=== PATIENT | female | born 1975 | race Caucasian/White ===

== ENCOUNTER 2023-03-05 07:52 | Outpatient (OUT) | payer BC, SELFPAY ==
[2023-03-05 08:12] LABS: Basophils Percent Auto 0.4 % (0.2-2.0); Eosinophils Absolute Auto 0.3 10^3/uL (0.0-0.7); Eosinophils Percent Auto 4.3 % (0.9-7.0); Hematocrit 42.9 % (36.0-48.0); Hemoglobin 14.5 g/dL (12.0-16.0); Immature Granulocytes Abs Auto 0.02 10^3/uL (0.00-0.03); Immature Granulocytes Pct Auto 0.3 % (0.0-0.5); Lymphocytes Absolute Auto 2.1 10^3/uL (1.2-3.8); Lymphocytes Percent Auto 29.5 % (20.5-60.0); Mean Corpuscular HGB Conc 33.8 g/dL (29.9-35.2); Mean Corpuscular Hemoglobin 29.9 pg (26.7-34.0); Mean Corpuscular Volume 88.5 fL (81.0-99.0); Mean Platelet Volume 9.5 fL (9.5-13.5); Monocytes Absolute Auto 0.5 10^3/uL (0.3-0.8); Monocytes Percent Auto 6.8 % (1.7-12.0); Neutrophils Absolute Auto 4.1 10^3/uL (1.4-6.5); Neutrophils Percent Auto 58.7 % (43.0-75.0); Platelet Count 260 10^3/uL (150-450); Red Blood Count 4.85 10^6/uL (4.20-5.40); Red Cell Distribution Width 12.9 % (11.0-15.0); White Blood Count 6.9 10^3/uL (4.0-11.0)
[2023-03-05 08:54] LABS: Estimated Average Glucose 197 mg/dL; Glycohemoglobin A1C 8.5 % (4.5-6.2)
[2023-03-05 09:02] LABS: Alanine Aminotransferase 70 U/L (14-59); Albumin Globulin Ratio 1.1; Albumin Level 3.9 g/dL (3.4-5.0); Alkaline Phosphatase 81 U/L (46-116); Anion Gap 14.9; Aspartate Amino Transferase 30 U/L (15-37); BUN Creatinine Ratio 15.6; Bilirubin Total 0.5 mg/dL (0.2-1.0); Calcium 9.4 mg/dL (8.5-10.1); Chloride 99 mmol/L (98-107); Chol HDL Ratio 4.6; Cholesterol 199 mg/dL (<=200); Estimated GFR (African America >60 (>=60); Estimated GFR (Non-African Ame >60 (>=60); Globulin 3.5 g/dL; Glucose 230 mg/dL (74-106); HDL Cholesterol 43 mg/dL (40-60); Potassium 3.9 mmol/L (3.5-5.1); Sodium 137 mmol/L (136-145); Total Protein 7.4 g/dL (6.4-8.2); Triglycerides 251 mg/dL (<=150); VLDL CHOLESTEROL 50.2 mg/dL
== END 2023-03-05 07:53 | disposition home or self-care (01) ==
PROVIDERS: PCP Family Medicine; Visit Provider Family Medicine
DX: Z00.00 Encounter for general adult medical examination without abnormal findings (principal)
CPT/HCPCS: 36415; 80053; 80061; 83036; 85025

== ENCOUNTER 2024-04-26 08:05 | Outpatient (OUT) | payer BC, SELFPAY ==
[2024-04-26 08:59] LABS: Estimated Average Glucose 137 mg/dL; Glycohemoglobin A1C 6.4 % (4.5-6.2)
[2024-04-26 09:03] LABS: Alanine Aminotransferase 47 U/L (14-59); Albumin Globulin Ratio 1.2; Albumin Level 3.7 g/dL (3.4-5.0); Alkaline Phosphatase 77 U/L (46-116); Aspartate Amino Transferase 22 U/L (15-37); BUN Creatinine Ratio 14.1; Bilirubin Total 0.5 mg/dL (0.2-1.0); Calcium 9.2 mg/dL (8.5-10.1); Carbon Dioxide 27.1 mmol/L (21.0-32.0); Chloride 103 mmol/L (98-107); Chol HDL Ratio 3.8; Cholesterol 170 mg/dL (<=200); Estimated GFR (African America >60 (>=60 mL/min/1.73m^2); Estimated GFR (Non-African Ame >60 (>=60 mL/min/1.73m^2); Globulin 3.2 g/dL; Glucose 170 mg/dL (74-106); HDL Cholesterol 45 mg/dL (40-60); Potassium 4.1 mmol/L (3.5-5.1); Sodium 142 mmol/L (136-145); Total Protein 6.9 g/dL (6.4-8.2); Triglycerides 224 mg/dL (<=150); VLDL CHOLESTEROL 44.8 mg/dL
[2024-04-26 09:04] LABS: Basophils Percent Auto 0.5 % (0.2-2.0); Eosinophils Absolute Auto 0.4 10^3/uL (0.0-0.7); Eosinophils Percent Auto 4.9 % (0.9-7.0); Hematocrit 42.9 % (36.0-48.0); Hemoglobin 14.5 g/dL (12.0-16.0); Immature Granulocytes Abs Auto 0.02 10^3/uL (0.00-0.03); Immature Granulocytes Pct Auto 0.3 % (0.0-0.5); Lymphocytes Absolute Auto 2.8 10^3/uL (1.2-3.8); Lymphocytes Percent Auto 36.5 % (20.5-60.0); Mean Corpuscular HGB Conc 33.8 g/dL (29.9-35.2); Mean Corpuscular Hemoglobin 29.8 pg (26.7-34.0); Mean Corpuscular Volume 88.1 fL (81.0-99.0); Mean Platelet Volume 9.7 fL (9.5-13.5); Monocytes Absolute Auto 0.6 10^3/uL (0.3-0.8); Monocytes Percent Auto 7.7 % (1.7-12.0); Neutrophils Absolute Auto 3.8 10^3/uL (1.4-6.5); Neutrophils Percent Auto 50.1 % (43.0-75.0); Platelet Count 291 10^3/uL (150-450); Red Blood Count 4.87 10^6/uL (4.20-5.40); Red Cell Distribution Width 13.1 % (11.0-15.0); White Blood Count 7.6 10^3/uL (4.0-11.0)
[2024-04-26 09:52] LABS: Microalbumin Urine Random <1.3 mg/dL (<=30.0)
== END 2024-04-26 08:06 | disposition home or self-care (01) ==
LOC: LAB 08:08
PROVIDERS: PCP Family Medicine; Visit Provider Family Medicine
DX: Z00.00 Encounter for general adult medical examination without abnormal findings (principal); E11.65 Type 2 diabetes mellitus with hyperglycemia
CPT/HCPCS: 36415; 80053; 80061; 82043; 83036; 85025

== ENCOUNTER 2024-11-24 07:12 | Outpatient (OUT) | payer BC, SELFPAY ==
--- OUTSIDE RECORDS SUMMARY | 2024-11-24 07:15 | XMS_ITS | CCD ---
Author Organization [facility] Care Team Providers Care Gas Worker Name Role Phone DR GERMAINE ALDANA Attending Unavailable HILDA, DR SYLVIA Nieto Primary Care Unavailable NEIL, DR HERRON Admitting Unavailable NEIL, DR HERRON Consulting Unavailable NEIL, DR HERRON Attending Unavailable HILDA, DR SYLVIA Nieto Primary Care Unavailable NEIL, DR HERRON Admitting Unavailable NEIL, DR HERRON Consulting Unavailable MD Sylvia Tavares Primary Care Provider [phone] MD Abdirahman Reynoso Attending Provider Sylvia Tavares Unavailable MD Sylvia Tavares Primary Care Provider [phone] MD Abdirahman Reynoso Attending Provider Sylvia Tavares MD Primary Care Provider [phone] BHARATI LIMON Attending Unavailable ABDIRAHMAN REYNOSO Attending Unavailable ABDIRAHMAN REYNOSO Referring Unavailable ABDIRAHMAN REYNOSO Attending Unavailable LESLYE ALEXANDER Attending Unavailable ABDIRAHMAN REYNOSO Attending Unavailable Sylvia Tavares MD Primary Care Provider Self, Referral Attending Provider Unavailable Abdirahman Reynoso MD Referring Provider Ly Kina ANGULO Attending Provider Kina Ruiz Attending Unavailable Sylvia Tavares Primary Care Unavailable Kina Ruiz Admitting Unavailable Self, Referral Admitting Unavailable Self, Referral Attending Unavailable Abdirahman Reynoso Referring Unavailable Sylvia Tavares Primary Care Unavailable Allergies Allergy Classification Reported Allergen(s) Allergy Type Date of Onset Reaction(s) Facility (10 sources) Latex; Translations: [Latex] Allergy to substance 03-17-20 [facility] (2 sources) Pseudoephedrine Drug Allergy 10-02-19 15 Unknown [email or web address] Other (2 sources) Substance with penicillin structure and antibacterial mechanism of action (substance) Drug allergy 10-02-19 15 Unknown [email or web address] Other (1 source) Penicillins Allergy to substance 04-26-20 [facility] Comment on above: Onset Date: 10/02/19 15 (1 source) 12 Hour Decongestant Allergy to substance 04-26-20 [facility] Comment on above: Onset Date: 10/02/19 15 Medications Current Medications Medication Drug Class(es) Dates Sig (Normalized) Sig (Original) 0.25 MG, 0.5 MG Dose 3 ML semaglutide 0.68 MG/ML Pen Injector [Ozempic] (1 source) inject 0.5 mg by subcutaneous injection every week Ozempic (0.25 or 0.5 MG/DOSE) 2 MG/3ML 0.5mg Subcutaneous weekly for 90 days Active Albuterol (2 sources) beta2-Adrenergic Agonist Start: 05-18-2022 take 2 puff(s) by inhalation four times daily Albuterol Sulfate 90mcg/actuat albuterol sulfate 90mcg/actuat, 2 puffs 4 times per day;shortness of breath or wheezing # 1, 05/18/2022, No Refill. Active inhalation 4 times per day;shortness of breath or wheezing for 0 *Pick strength-form from [employer] for eRX* 06 May, 2022 Active ascorbic acid 1000 mg oral tablet (4 sources) Vitamin C Start: 06-16-2017 take 1 tablet by mouth once daily Ascorbic Acid (Vitamin C) 1,000 mg Tablet Active 1 TAB PO Daily June 16, 2017 12:00am Aspir-81 (2 sources) Aspir-81 Active aspirin 81 mg chewable tablet (8 sources) Platelet Aggregation Inhibitor, Nonsteroidal Anti-inflammatory Drug Start: 06-16-2017 take 1 tablet by mouth once daily Aspirin (Aspirin Childrens) 81 mg Tablet,Chewable Active 1 TAB PO Daily June 16, 2017 12:00am ASPIRIN 81 PO 1 (one) time each day at the same time Active atenolol 50 mg oral tablet (10 sources) beta-Adrenergic Reid Start: 06-16-2017 take 1 tablet by mouth once daily Atenolol 50 mg Tablet Active 50 MG PO Daily June 16, 2017 12:00am atorvastatin 20 mg oral tablet (12 sources) HMG-CoA Reductase Inhibitor Start: 01-31-2024 Atorvastatin 20 mg tablet Active 0 .ROUTE .COMPLEX January 31, 2024 10:11am TAKE 1 TABLET DAILY Start: 06-16-2017 End: 01-31-2024 take 1 tablet by mouth once daily Atorvastatin 20 mg Tablet Discontinued 20 MG PO Daily June 16, 2017 12:00am January 31, 2024 10:11am calcium carbonate 1500 mg oral tablet (8 sources) Start: 06-16-2017 take 1 tablet by mouth twice daily Calcium Carbonate (Calcium 600) 600 mg calcium (1,500 mg) Tablet Active 1 TAB PO Twice daily June 16, 2017 12:00am calcium carbonat e (Calcium 600) 600 MG tablet Orally Active cetirizine hydrochloride 10 mg oral tablet (8 sources) Histamine-1 Receptor Antagonist Start: 06-16-2017 take 1 tablet by mouth once daily Cetirizine 10 mg Tablet Active 10 MG PO Daily June 16, 2017 12:00am cetirizine (ZyrT EC) 10 MG chewable tablet 1 (one) time each day at the same time Active cinnamon bark 500 mg oral capsule (4 sources) Start: 06-16-2017 take 1 capsule by mouth once daily Cinnamon Bark (Cinnamon) 500 mg Capsule Active 500 MG PO Daily June 16, 2017 12:00am Cinnamon Preparation (4 sources) Non-Standardized Food Allergenic Extract Cinnamon 500 MG tablet 1 (one) time each day at the same time Active hydroCHLOROthiazide 12.5 mg / lisinopril 10 mg oral tablet (12 sources) Thiazide Diuretic, Angiotensin Converting Enzyme Inhibitor Start: 04-03-2024 Lisinopril-Hydr ochlorothiazide 10-12.5 mg tablet Active 0 .ROUTE .COMPLEX April 03, 2024 9:05pm TAKE 1 TABLET DAILY Start: 06-16-2017 End: 04-03-2024 take 1 tablet by mouth once daily Lisinopril-Hydrochlorothiazide 10-12.5 m g Tablet Discontinued 1 TAB PO Daily June 16, 2017 12:00am April 03, 2024 9:05pm Prsrx-Nn-7-Shd-Uot-Tnjbtli-A st (Megared [place]-3 Krill Oil) 690-500-86-64 mg Capsule (4 sources) Start: 06-16-2017 Wyqlk-Jn-8-Lqm-Zjc-Bexjqyi-A st (Megared [place]-3 Krill Oil) 746-990-72-64 mg Capsule Active 1 TAB PO Daily June 16, 2017 12:00am metFORMIN (12 sources) Biguanide Start: 09-28-2023 Metformin 1,000 mg tablet Active 0 .ROUTE .COMPLEX 180 September 28, 2023 8:43pm TAKE 1 TABLET TWICE A DAY Start: 06-16-2017 End: 09-28-2023 take 1 tablet by mouth twice daily Metformin 1,000 mg Tablet Discontinued 1000 MG PO Twice daily June 16, 2017 12:00am September 28, 2023 8:44pm metFORMIN (Gluco phage) 1000 MG tablet every 12 (twelve) hours Active Boveyaia-Dbsm-Fj-Calcium-Min s (Women's One Daily) 18 mg iron-400 mcg-500 mg Ca Tablet (4 sources) Start: 06-16-2017 take 1 tablet by mouth once daily Rnvolhse-Esaq-Qm-Calcium-Mins (Women's One Daily) 18 mg iron-400 mcg-500 mg Ca Tablet Active 1 MG PO Daily June 16, 2017 12:00am OneTouch Verio (2 sources) Start: 01-05-2022 OneTouch Verio OneTouch Veri o , 1 (one) Each Each daily # 0, 01/05/2022, No Refill. Active In Vitro daily for 0 *Pick strength-form from [employer] for eRX* Dec, Active OneTouch Verio - (2 sources) OneTouch Verio - USE 1 STRIP DAILY Active ozempic (0.25 or 0.5 mg/dose ) 2 mg/3ml solution pen-injector (1 source) inject 0.5 mg by subcutaneous injection every week Ozempic (0.25 or 0.5 MG/DOSE) 2 MG/3ML 0.5mg Subcutaneous weekly for 90 days Active Ozempic, 0.25 or 0.5 MG/DOSE , 2 MG/3ML solution pen-injector (4 sources) Start: 03-08-2023 Ozempic, 0.25 or 0.5 MG/DOSE , 2 MG/3ML solution pen-injector 03/08/2023 Active potassium 99 mg extended release oral tablet (8 sources) Start: 06-16-2017 take 1 tablet by mouth once daily Potassium 99 mg Tablet Active 99 MG PO Daily June 16, 2017 12:00am Potassium 99 MG tablet 1 (one) time each day at the same time Active Semaglutide (4 sources) Start: 04-26-2024 Semaglutide (O zempic) 0.25 mg or 0.5 mg (2 mg/3 mL) pen injector Active 0.5 MG SUBCUT every week 3 April 26, 2024 1:43pm Start: 04-19-2024 End: 04-26-2024 Semaglutide (Ozempic) 0.25 m g or 0.5 mg (2 mg/3 mL) pen injector Discontinued 0.5 MG SUBCUT every week 3 April 19, 2024 12:00am April 26, 2024 1:43pm valACYclovir 1000 mg oral tablet (2 sources) Herpesvirus Nucleoside Analog DNA Polymerase Inhibitor, Herpes Simplex Virus Nucleoside Analog DNA Polymerase Inhibitor, Herpes Zoster Virus Nucleoside Analog DNA Polymerase Inhibitor Start: 03-20-2024 End: 03-27-2024 take 1 tablet by mouth in the morning, then take 1 tablet by mouth in the evening, then take 1 tablet by mouth at bedtime valACYclovir (Valtrex) 1 g tablet Indications: Herpes zoster without complication Take 1 tablet (1,000 mg) by mouth in the morning and 1 tablet (1,000 mg) in the evening and 1 tablet (1,000 mg) before bedtime. Do all this for 7 days. 21 tablet 03/20/2024 03/27/2024 Active Vitamin B Complex-Folic Acid (Super B Maxi Complex) 0.4 mg Tablet (4 sources) Start: 06-16-2017 take 1 tablet by mouth once daily Vitamin B Complex-Folic Acid (Super B Maxi Complex) 0.4 mg Tablet Active 1 TAB PO Daily June 16, 2017 12:00am Zinc (4 sources) Start: 06-16-2017 take 1 tablet by mouth once daily Zinc 50 mg Tablet Active 50 MG PO Daily June 16, 2017 12:00am Start: 06-16-2017 take 50 mg by mouth once daily Zinc Active 50 MG PO Daily June 16, 2017 12:00am zinc gluconate 50 mg oral ta blet (4 sources) zinc gluconate 5 0 MG tablet 1 (one) time each day at the same time Active Completed/Discontinued Medications Medication Drug Class(es) Dates Sig (Normalized) Sig (Original) acetaminophen 325 mg / HYDROcodone bitartrate 5 mg oral tablet (4 sources) Opioid Agonist Start: 07-01-2017 End: 07-08-2017 take 1 tablet by mouth four times daily as needed for pain Hydrocodone-Acetam inophen (Lapine) 5-325 mg tablet Discontinued 1 TAB PO Four times daily as needed for pain 28 7 July 01, 2017 July 07, 2017 12:00am July 08, 2017 12:03am SITagliptin 100 mg oral tablet (4 sources) Dipeptidyl Peptidase 4 Inhibitor Start: 06-16-2017 End: 04-26-2024 take 1 tablet by mouth once daily Sitagliptin Phosphate (Januvia) 100 mg Tablet Discontinued 100 MG PO Daily June 16, 2017 12:00am April 26, 2024 1:21pm vitamin e 180 mg oral capsule (8 sources) Start: 06-16-2017 End: 07-01-2017 take 1 capsule by mouth once daily Vitamin E 400 unit Capsule Discontinued 400 UNIT PO Daily June 16, 2017 12:00am July 01, 2017 10:12am alpha tocopherol (Vitamin E) 400 units capsule 1 capsule 1 (one) time each day at the same time Active Problems Problem Classification Problem Date Documented Da te Episodic/Chronic Diabetes mellitus with complications (7 sources) Type 2 diabetes mellitus; Translations: [Type 2 diabetes mellitus with hyperglycemia] Chronic Disorders of lipid metabolism (4 sources) Hypercholesterolemi a; Translations: [Pure hypercholesterolemi a, unspecified] 04-26-2024 Chronic Essential hypertension (4 sources) Hypertensive disorder; Translations: [Essential (primary) hypertension] 04-26-2024 Chronic Other and unspecified benign neoplasm (2 sources) Leiomyoma; Translations: [Benign neoplasm of connective and other soft tissue, unspecified] 05-21-2024 Episodic Other gastrointestinal disorders (2 sources) Pelvic mass; Translations: [Intra-abdominal and pelvic swelling, mass and lump, unspecified site] 05-21-2024 Episodic Other non-traumatic joint disorders (1 source) Pain in right knee Episodic Other nutritional; endocrine; and metabolic disorders (2 sources) Body mass index 40+ - severely obese; Translations: [Body mass index (BMI) 40.0-44.9, adult] Chronic Other nutritional; endocrine; and metabolic disorders (2 sources) Severe obesity; Translations: [Morbid (severe) obesity due to excess calories] Chronic Other nutritional; endocrine; and metabolic disorders (1 source) Morbid (severe) obesity due to excess calories Chronic Other nutritional; endocrine; and metabolic disorders (1 source) Body mass index (BMI) 40.0-44.9, adult Chronic Other screening for suspected conditions (not mental disorders or infectious disease) (8 sources) Patient encounter status; Translations: [Encounter for screening for malignant neoplasm of colon] Onset: 07-03-2024 04-26-2024 Episodic Ovarian cyst (2 sources) Cyst of ovary; Translations: [Unspecified ovarian cyst, unspecified side] 05-21-2024 Episodic Viral infection (2 sources) Herpes zoster without complication; Translations: [Zoster without complications] 03-20-2024 Episodic Results Test Name Value Interpretation Reference Range Facility Glucose Glucometer (BldC) [M ass/Vol]Ordered By: Kina Ruiz on 07-03-2024 Glucose [Mass/Vol] Capillary blood glucose measurement by glucometer (mass/volume) [facility] Comment on above: Random Glucose Refer ence Range is dependent on time and content of last meal. Glucose of more than 200 mg/dL in a nonstressed, ambulatory subject supports the diagnosis of Diabetes Mellitus. Glucose Poct Glucometerson 0 07-03-2024 Glucose [Mass/Vol] 189 mg/dL Normal [facility] Comment on above: Result Comment: [facility] Glucose Reference Range is dependent on time and content of last meal. Glucose of more than 200 mg/dL in a nonstressed, ambulatory subject supports the diagnosis of Diabetes Mellitus. PERFORMED BY: [facility] [address] [place] [address] PATHOLOGIST [employer] JANKI PEREZ M.D. Performed By: #### G LUEBONIE #### Point of Care testing , HCG ( test) Becky limon Ql (U)Ordered By: Kina Ruiz on 07-03-2024 HCG ( test) Ql (U) Urine human chorionic gonadotropin (hCG) detection by immunoassay [facility] HCG,Urineon 07-03-2024 Beta HCG ( test) Ql (U) Negative Normal [facility] Comment on above: Result Comment: PERF ORMED BY: [address] [place] [id number] PATHOLOGIST [employer] JANKI PEREZ M.D. Performed By: #### U HCG #### [place] [id number] [facility] Mart 07-03-2024 L Specimen: [id number] Received: 07/03/24 Status: MARYJANE Thi Num: [id number] Spec Type: Surgical Subm Dr: Kina Ruiz DO Tissues: A Colon Biopsy (CECAL POLYP) Procedures: Maurice VILLARREAL/Shu Londono Age/ Patient Sex Location Account Attending Physician Loly Wayne/F [id number] Kina Ruiz DO SPEC NUM: [id number] RECD: 07/03/24 STATUS: MARYJANE NESS NUM: [id number] ALEKSANDAR: 07/03/24 [facility] DR: Kina Ruiz DO ENTERED: 07/03/24 [facility] DR: SPEC TYPE: Surgical DEPT: S ENTERED BY: [id number] RECV BY: [id number] ORDERED: HE/2, Gross/Micro L4 ORDERED: HE/2, Gross/Micro L4 Pathological Diagnosis Cecal polyp: Tubular adenoma. Clinical Information Screen Gross Description Part A is received in formalin labeled with the patients name, date of , and cecal polyp are 2 prabhakar-covarrubias, focally erythematous, friable, 0.3 and 0.4 cm in greatest dimension tissue bits. The specimen is entirely submitted in a single cassette. (1, ns, [id number]) CPT Codes 74239 Specimen: [id number] Received: 07/03/24 Status: MARYJANE Ness Num: [id number] Spec Type: Surgical Subm Dr: Kina Ruiz DO Tissues: A Colon Biopsy (CECAL POLYP) Procedures: HE/2, Gross/Micro L4 Patient: Loly Wayne [id number] (Continued) Signed (signature on file) Mary Peña MD 07/04/24 0837 Normal [facility] MM screening mammo BI w/CADo n 05-21-2024 MM screening mammo BI w/CAD [facility] [place] [address] Mammography Report Signed Patient: Loly Wayne MR#: [id number] 9 : 1975 Acct:[id number] Age/Sex: 48 / F ADM Date: 05/19/24 Loc: [place] Room: Type: [facility] Attending Dr: Referral Self Copies to: MD Abdirahman Armijo MD-NOMS SELF,REFERRAL Ordering Provider: SELF,REFERRAL Date of Service: 05/19/24 MM/MM screening mammo BI w/CAD: SCREENING BILATERAL Screening Full Field digital mammogram with 3-D imaging. Full field digital CC and MLO imaging performed. CAD utilized. COMPARISON: 05/11/2023 HISTORY: Annual screening BREAST COMPOSITION: Scattered fibroglandular densities of the breast parenchyma identified BREAST CALCIFICATIONS: Benign calcifications present. VASCULAR CALCIFICATIONS: None ARCHITECTURAL DISTORTION: None BREAST NODULE: None AXILLARY LYMPH NODES: Normal POSTSURGICAL CHANGES: None MM/MM screening mammo BI w/CAD IMPRESSION: No mammographic evidence of malignancy. Routine follow-up recommended in one year. RESULT CODE: 2 Benign Findings(s) DENSITY CODE: 2 (approximately 25-50% glandular) FOLLOW UP: 1YR THE FALSE-NEGATIVE RATE OF MAMMOGRAPHY IS APPROXIMATELY 10%. IMAGING OF A PALPABLE ABNORMALITY MUST BE BASED ON CLINICAL GROUNDS. PATIENT WAS ENTERED INTO A REMINDER SYSTEM WITH A TARGET DUE DATE FOR THE NEXT MAMMOGRAM. Impression dictated by: Jack Russell M.D.05/21/2024 7:49 AM Dictation Location: [facility] Transcribed By: [facility] 05/21/24 0749 Dictated By: Jack Russell DO 05/21/24 0740 Signed By: 05/21/24 0749 Normal [facility] Basophils Auto (Bld) [#/Vol] on 04-26-2024 Basophils (Bld) [#/Vol] Automated basophil count 0.0-0.1 [facility] Basophils/100 WBC Auto (Bld) on 04-26-2024 Basophils/100 WBC (Bld) Automated basophil % 0.2-2.0 [facility] Cholesterol in LDL Calc [Mas s/Vol]on 04-26-2024 Cholesterol in LDL [Mass/Vol] Cholesterol in LDL [Mass/volume] in Serum or Plasma by calculation [facility] Comment on above: <100 mg/dl [id number] 0-129 mg/dl NEAR OR ABOVE [id number] mg/dl BORDERLINE [id number] mg/dl HIGH>190 mg/dl VERY HIGH Cholesterol in VLDL Calc [Ma ss/Vol]on 04-26-2024 Cholesterol in VLDL [Mass/Vol] Cholesterol in VLDL [Mass/volume] in Serum or Plasma by calculation [facility] Eosinophils/100 WBC Auto (Bl d)on 04-26-2024 Eosinophils/100 WBC (Bld) Automated eosinophil % 0.9-7.0 [facility] Erythrocyte distribution wid th Auto (RBC) [Ratio]on 04-26-2024 Erythrocyte distribution width (RBC) [Ratio] Erythrocyte distribution width [Ratio] by Automated count 11.0-15.0 [facility] Estimated glomerular filtrat ion rate (GFR) non- Americanon 04-26-2024 GFR/1.73 sq M.predicted among non-blacks MDRD (S/P/Bld) [Vol rate/Area] Estimated glomerular filtration rate (GFR) non- >=60 mL/min/1.73m 2 [facility] Globulin Calc (S) [Mass/Vol] on 04-26-2024 Globulin (S) [Mass/Vol] Serum globulin measurement by calculation (mass/volume) [facility] Glucose mean value [Mass/vol ume] in Blood Estimated from glycated hemoglobinon 04-26-2024 Average glucose Estimated from glycated hemoglobin (Bld) [Mass/Vol] Glucose mean value [Mass/volume] in Blood Estimated from glycated hemoglobin [facility] Hematocrit Auto (Bld) [Volum e fraction]on 04-26-2024 Hematocrit (Bld) [Volume fraction] Hematocrit [Volume Fraction] of Blood by Automated count 36.0-48.0 [facility] Hemoglobin [Mass/volume] in Bloodon 04-26-2024 Hemoglobin (Bld) [Mass/Vol] Hemoglobin [Mass/volume] in Blood 12.0-16.0 [facility] Laboratory - Chemistry and C hemistry - challengeon 04-26-2024 Albumin [Mass/Vol] 3.7 g/dL 3.4-5.0 [facility] ALP [Catalytic activity/Vol] 77 U/L 46-116 [facility] ALT [Catalytic activity/Vol] 47 U/L 14-59 [facility] AST [Catalytic activity/Vol] 22 U/L 15-37 [facility] Bilirubin [Mass/Vol] 0.5 mg/dL 0.2-1.0 [facility] Calcium [Mass/Vol] 9.2 mg/dL 8.5-10.1 [facility] Chloride [Moles/Vol] 103 mmol/L 98-107 [facility] Cholesterol [Mass/Vol] 170 mg/dL <=200 [facility] Cholesterol in HDL [Mass/Vol] 45 mg/dL 40-60 [facility] Comment on above: > or =60 mg/dl - LOW CARDIOVASCULAR RISK<40 mg/dl - HIGH CARDIOVASCULAR RISK CO2 [Moles/Vol] 27.1 mmol/L 21.0-32.0 [facility] Creatinine [Mass/Vol] 0.71 mg/dL 0.55-1.02 [facility] GFR/1.73 sq M.predicted MDRD (S/P/Bld) [Vol rate/Area] mL/min/{1.73_m2} >=60 mL/min/1.73m 2 [facility] Glucose [Mass/Vol] 170 mg/dL High 74-106 [facility] Potassium [Moles/Vol] 4.1 mmol/L 3.5-5.1 [facility] Protein [Mass/Vol] 6.9 g/dL 6.4-8.2 [facility] Sodium [Moles/Vol] 142 mmol/L 136-145 [facility] Triglyceride [Mass/Vol] 224 mg/dL High <=150 [facility] Urea nitrogen [Mass/Vol] 10.0 mg/dL 7.0-18.0 [facility] Urea nitrogen/Creatinine [Mass ratio] 14.1 mg/mg [facility] Laboratory - Hematology and Cell countson 04-26-2024 HbA1c (Bld) [Mass fraction] 6.4 % High 4.5-6.2 [facility] Comment on above: ADA RECOMMENDED LIMI T 4.0 - 6.0ADA THERAPEUTIC TARGET < 7.0ACTION SUGGESTED> 7.0 Immature granulocytes/100 WBC (Bld) 0.3 % 0.0-0.5 [facility] Leukocytes [#/volume] correc janine for nucleated erythrocytes in Blood by Automated counon 04-26-2024 WBC corrected for nucl RBC Auto (Bld) [#/Vol] Leukocytes [#/volume] corrected for nucleated erythrocytes in Blood by Automated coun 4.0-11.0 [facility] Lymphocytes Auto (Bld) [#/Vo l]on 04-26-2024 Lymphocytes (Bld) [#/Vol] Lymphocytes [#/volume] in Blood by Automated count 1.2-3.8 [facility] Lymphocytes/100 WBC Auto (Bl d)on 04-26-2024 Lymphocytes/100 WBC (Bld) Lymphocytes/100 leukocytes in Blood by Automated count 20.5-60.0 [facility] MCH Auto (RBC) [Entitic mass ]on 04-26-2024 MCH (RBC) [Entitic mass] MCH [Entitic mass] by Automated count 26.7-34.0 [facility] MCHC Auto (RBC) [Mass/Vol]on 04-26-2024 MCHC (RBC) [Mass/Vol] MCHC [Mass/volume] by Automated count 29.9-35.2 [facility] MCV Auto (RBC) [Entitic vol] on 04-26-2024 MCV (RBC) [Entitic vol] MCV [Entitic volume] by Automated count 81.0-99.0 [facility] Microalbumin [Mass/volume] i n Urineon 04-26-2024 Albumin DL <= 20 mg/L (U) [Mass/Vol] Microalbumin [Mass/volume] in Urine <=30.0 [facility] Monocytes Auto (Bld) [#/Vol] on 04-26-2024 Monocytes (Bld) [#/Vol] Automated blood monocyte count 0.3-0.8 [facility] Monocytes/100 WBC Auto (Bld) on 04-26-2024 Monocytes/100 WBC (Bld) Automated monocyte % 1.7-12.0 [facility] Neutrophils Auto (Bld) [#/Vo l]on 04-26-2024 Neutrophils (Bld) [#/Vol] Neutrophils [#/volume] in Blood by Automated count 1.4-6.5 [facility] Neutrophils/100 WBC Auto (Bl d)on 04-26-2024 Neutrophils/100 WBC (Bld) Automated neutrophil % 43.0-75.0 [facility] No Panel Informationon 04-26 Eosinophils # (Auto) 0.4 10 3/uL 0.0-0.7 [facility] Immature Granulocyte # (Auto) 0.02 10 3/uL 0.00-0.03 [facility] Platelet mean volume Auto (B ld) [Entitic vol]on 04-26-2024 Platelet mean volume (Bld) [Entitic vol] Platelet mean volume [Entitic volume] in Blood by Automated count 9.5-13.5 [facility] Platelets Auto (Bld) [#/Vol] on 04-26-2024 Platelets (Bld) [#/Vol] Platelets [#/volume] in Blood by Automated count 150-450 [facility] RBC Auto (Bld) [#/Vol]on RBC (Bld) [#/Vol] Erythrocytes [#/volume] in Blood by Automated count 4.20-5.40 [facility] Serum or plasma albumin/glob ulin mass ratioon 04-26-2024 Albumin/Globulin [Mass ratio] Serum or plasma albumin/globulin mass ratio [facility] Serum or plasma anion gap de terminationon 04-26-2024 Anion gap [Moles/Vol] Serum or plasma anion gap determination [facility] Serum or plasma total choles terol/high density lipoprotein (HDL) cholesterol mass radhames 04-26-2024 Cholesterol.total/Cho lesterol in HDL [Mass ratio] Serum or plasma total cholesterol/high density lipoprotein (HDL) cholesterol mass rat [facility] Comment on above: 3.3 - 4.4 LOW RISK4. 4 - 7.1 AVERAGE RISK7.1 - 11.0 MODERATE RISK>11.0 HIGH RISK GLUCOSE BLOODon 01-29-2022 Glucose [Mass/Vol] 161 mg/dL Critically high 74-106 [facility] Comment on above: Performed By: #### L IPID, GLUC #### [facility] [address] [place] [address] [address] Sammy Henson GLYCOHEMOGLOBIN A1Con 2021 ADA RECOMMENDATION SEE BELOW Normal [facility] Comment on above: Result Comment: ADA RECOMMENDED LIMIT 4.0 - 6.0 ADA THERAPEUTIC TARGET < 7.0 ACTION SUGGESTED > 7.0 Performed By: #### A 1C #### [facility] [address] [place] [address] [address] Sammy Henson Glucose [Mass/Vol] 143 mg/dL Normal [facility] Comment on above: Performed By: #### A 1C #### [facility] [address] [place] [address] [address] Sammy Henson HbA1c (Bld) [Mass fraction] 6.6 % Critically high 4.5-6.2 [facility] Comment on above: Performed By: #### A 1C #### [facility] [address] [place] [address] [address] Sammy Henson LIPID PROFILEon 01-29-2022 CHOL-HDL RATIO NORM SEE BELOW Normal [facility] Comment on above: Result Comment: 3.3 - 4.4 LOW RISK 4.4 - 7.1 AVERAGE RISK 7.1 - 11.0 MODERATE RISK >11.0 HIGH RISK Performed By: #### L IPID, GLUC #### [facility] [address] [address] [address] Sammy Henson Cholesterol [Mass/Vol] 158 mg/dL Normal <=200 [facility] Comment on above: Performed By: #### L IPID, GLUC #### [facility] [address] [address] [address] Sammy Henson Cholesterol in HDL [Mass/Vol] 36 mg/dL Critically low 40-60 [facility] Comment on above: Performed By: #### L IPID, GLUC #### [facility] [address] [address] [address] Sammy Henson Cholesterol in LDL [Mass/Vol] 71.6 mg/dL Normal [facility] Comment on above: Performed By: #### L IPID, GLUC #### [facility] [address] [address] [address] Sammy Henson Cholesterol.total/Cho lesterol in HDL [Mass ratio] 4.4 {ratio} Normal [facility] Comment on above: Performed By: #### L IPID, GLUC #### [facility] [address] [address] [address] Sammy Henson HDL NORMAL > or = 60 mg/dl - LOW CARDIOVASCULAR RISK <40 mg/dl - HIGH CARDIOVASCULAR RISK Normal [facility] Comment on above: Performed By: #### L IPID, GLUC #### [facility] [address] [address] [address] Sammy Henson LDL CALC NORMAL SEE BELOW Normal [facility] Comment on above: Result Comment: <100 mg/dl OPTIMAL 100 - 129 mg/dl NEAR OR ABOVE OPTIMAL 130 - 159 mg/dl BORDERLINE HIGH 160 - 189 mg/dl HIGH >190 mg/dl VERY HIGH Performed By: #### L IPID, GLUC #### [facility] [address] [address] [address] Sammy Henson Triglyceride [Mass/Vol] 252 mg/dL Critically high <=150 [facility] Comment on above: Performed By: #### L IPID, GLUC #### [facility] [address] [address] [address] Sammy Henson VLDL CALC 50.4 mg/dL Normal [facility] Comment on above: Performed By: #### L IPID, GLUC #### [facility] [address] [address] [address] Sammy Henson GLUCOSE BLOODon 04-04-2021 Glucose [Mass/Vol] 166 mg/dL Critically high 74-106 [facility] Comment on above: Performed By: #### L IPID, GLUC #### [facility] [address] [address] [address] Sammy Henson GLYCOHEMOGLOBIN A1Con 2020 ADA RECOMMENDATION ADA THERAPEUTIC TARGET 6.0 - 7.0 ACTION SUGGESTED > 7.0 Normal [facility] Comment on above: Performed By: #### A 1C #### [facility] [address] [address] [address] Sammy Henson Glucose [Mass/Vol] 137 mg/dL Normal [facility] Comment on above: Performed By: #### A 1C #### [facility] [address] [place] [address] Dr. Sammy Henson HbA1c (Bld) [Mass fraction] 6.4 % Critically high <=6.0 [facility] Comment on above: Performed By: #### A 1C #### [facility] [address] [place] [address] Dr. Sammy Henson LIPID PROFILEon 04-04-2021 CHOL-HDL RATIO NORM SEE BELOW Normal [facility] Comment on above: Result Comment: 3.3 - 4.4 LOW RISK 4.4 - 7.1 AVERAGE RISK 7.1 - 11.0 MODERATE RISK >11.0 HIGH RISK Performed By: #### L IPID, GLUC #### [facility] [address] [place] [address] Dr. Sammy Henson Cholesterol [Mass/Vol] 179 mg/dL Normal <=200 [facility] Comment on above: Performed By: #### L IPID, GLUC #### [facility] [address] [address] [address] Sammy Henson Cholesterol in HDL [Mass/Vol] 40 mg/dL Normal [facility] Comment on above: Performed By: #### L IPID, GLUC #### [facility] [address] [address] [address] Sammy Henson Cholesterol in LDL [Mass/Vol] 100.4 mg/dL Normal [facility] Comment on above: Performed By: #### L IPID, GLUC #### [facility] [address] [address] [address] Sammy Henson Cholesterol.total/Cho lesterol in HDL [Mass ratio] 4.5 {ratio} Normal [facility] Comment on above: Performed By: #### L IPID, GLUC #### [facility] [address] [address] [address] Sammy Henson HDL NORMAL > or = 60 mg/dl - LOW CARDIOVASCULAR RISK <40 mg/dl - HIGH CARDIOVASCULAR RISK Normal [facility] Comment on above: Performed By: #### L IPID, GLUC #### [facility] [address] [address] [address] Sammy Henson LDL CALC NORMAL SEE BELOW Normal [facility] Comment on above: Result Comment: <100 mg/dl OPTIMAL 100 - 129 mg/dl NEAR OR ABOVE OPTIMAL 130 - 159 mg/dl BORDERLINE HIGH 160 - 189 mg/dl HIGH >190 mg/dl VERY HIGH Performed By: #### L IPID, GLUC #### [facility] [address] [address] [address] Sammy Henson Triglyceride [Mass/Vol] 193 mg/dL Critically high <=150 [facility] Comment on above: Performed By: #### L IPID, GLUC #### [facility] [address] [address] [address] Sammy Henson VLDL CALC 38.6 mg/dL Normal [facility] Comment on above: Performed By: #### L IPID, GLUC #### [facility] [address] [address] [address] Sammy Henson Vital Signs Date Time Vital Sign Value Performing Clinician Facility 07-03-2024 08:46-0500 Diastolic blood pressure 68 mm[Hg] Sylvia Tavares MD Work Phone: [facility] 07-03-2024 08:46-0500 Heart rate 82 /min Sylvia Tavares MD Work Phone: [facility] 07-03-2024 08:46-0500 Respiratory rate 16 /min Sylvia Tavares MD Work Phone: [facility] 07-03-2024 08:46-0500 SaO2% (BldA) [Mass fraction] 98 % Sylvia Tavares MD Work Phone: [facility] 07-03-2024 08:46-0500 Systolic blood pressure 116 mm[Hg] Sylvia Tavares MD Work Phone: [facility] 07-03-2024 07:46-0500 Body height 157.48 cm Sylvia Tavares MD Work Phone: [facility] 07-03-2024 07:46-0500 Body weight 98.43 kg Sylvia Tavares MD Work Phone: [facility] 05-21-2024 15:28-0500 Body mass index (BMI) [Ratio] 40.34 kg/m2 Abdirahman Reynoso MD Work Phone: [facility] 05-21-2024 15:28-0500 Body weight 98.43 kg Abdirahman Reynoso MD Work Phone: [facility] 05-21-2024 15:28-0500 Diastolic blood pressure 76 mm[Hg] Abdirahman Reynoso MD Work Phone: [facility] 05-21-2024 15:28-0500 Systolic blood pressure 118 mm[Hg] Abdirahman Reynoso MD Work Phone: [facility] 04-26-2024 13:15-0500 Body height 157.48 cm [facility] 04-26-2024 13:15-0500 Body mass index (BMI) [Ratio] 40 kg/m2 [facility] 04-26-2024 13:15-0500 Body weight 99.33 kg [facility] 04-26-2024 13:15-0500 Diastolic blood pressure 70 mm[Hg] [facility] 04-26-2024 13:15-0500 Heart rate 84 /min [facility] 04-26-2024 13:15-0500 Systolic blood pressure 112 mm[Hg] [facility] 03-20-2024 17:17-0400 Body mass index (BMI) [Ratio] 40.71 kg/m2 Leslye Alexander [employer] Work Phone: [facility] 03-20-2024 17:17-0400 Body temperature 96.8 [degF] Leslye Alexander [employer] ANALY[employer] Work Phone: [facility] 03-20-2024 17:17-0400 Body weight 99.34 kg Leslye Alexander [employer] ANA[employer] Work Phone: [facility] 03-20-2024 17:17-0400 Diastolic blood pressure 70 mm[Hg] Leslye Alexander [employer] ANALY[employer] Work Phone: [facility] 03-20-2024 17:17-0400 Heart rate 76 /min Leslye Alexander [employer] ANALY[employer] Work Phone: [facility] 03-20-2024 17:17-0400 SaO2% (BldA) [Mass fraction] 98 % Leslye Alexander [employer]WORK [employer] ANALYST Work Phone: [facility] 03-20-2024 17:17-0400 Systolic blood pressure 118 mm[Hg] Leslye Alexander [employer]WORK [employer] ANALYST Work Phone: [facility] 05-03-2023 15:45-0500 Body height 157.48 cm Sylvia Tavares Other [email or web address] Other 05-03-2023 15:45-0500 Body mass index (BMI) [Ratio] 41.92 kg/m2 Sylvia Tavares Other [email or web address] Other 05-03-2023 15:45-0500 Body weight 103.97 kg Sylvia Tavares Other [email or web address] Other 05-03-2023 15:45-0500 Diastolic blood pressure 80 mm[Hg] Sylvia Tavares Other [email or web address] Other 05-03-2023 15:45-0500 Systolic blood pressure 121 mm[Hg] Sylvia Tavares Other [email or web address] Other Encounters Encounter Date Encounter Type Care Provider Facility Start: 07-03-2024 Non-patient / Non-visit Sylvia Tavares MD Work Phone: [facility] [address] Work Phone: Start: 07-03-2024 End: 07-03-2024 Admission to same day surgery center Sylvia Tavares MD Work Phone: [facility] Work Phone: Start: 07-03-2024 End: 07-03-2024 ambulatory Sylvia Tavares MD Work Phone: [facility] Work Phone: Start: 05-21-2024 End: 05-21-2024 Patient encounter status Abdirahman Reynoso MD Work Phone: [facility] Start: 05-21-2024 End: 05-21-2024 Periodic preventive med est patient 40-64yrs Abdirahman Reynoso MD Work Phone: [facility] Comment on above: Screening for malign ant neoplasm of cervix (Primary Dx); Encounter for screening mammogram for malignant neoplasm of breast; Encounter for gynecological examination without abnormal finding; Pelvic mass; Cyst of ovary, unspecified laterality; Fibroids Start: 05-21-2024 End: 05-21-2024 ambulatory ABDIRAHMAN REYNOSO Not Available Start: 05-19-2024 End: 05-19-2024 Patient encounter procedure Sylvia Tavares MD Work Phone: [facility] Work Phone: Start: 05-19-2024 End: 05-19-2024 ambulatory Referral Self Facility:[facility] Start: 04-26-2024 End: 04-26-2024 ambulatory [facility] Work Phone: Start: 04-26-2024 End: 04-26-2024 Encounter for general adult medical examination without abnormal findings [facility] Start: 04-26-2024 End: 04-26-2024 Patient encounter procedure [facility] Work Phone: Start: 04-26-2024 Non-patient / Non-visit [facility] Work Phone: Start: 04-25-2024 Patient encounter status [facility] Start: 03-20-2024 End: 03-20-2024 ambulatory LESLYE ALEXANDER Not Available Start: 03-20-2024 End: 03-20-2024 Office outpatient visit 25 minutes Leslye Alexander [employer] A[employer] Work Phone: [facility] Comment on above: Herpes zoster withou t complication (Primary Dx) Start: 12-22-2023 End: 12-22-2023 ambulatory PENOLA P ANGELES Not Available Start: 09-22-2023 End: 09-22-2023 ambulatory PENOLA P ANGELES Not Available Start: 07-12-2023 End: 07-12-2023 ambulatory Sylvia Tavares Other [facility] [employer] Other Start: 07-12-2023 Telephone encounter Sylvia Tavares [facility] Start: 06-26-2023 End: 06-26-2023 ambulatory BHARATI LIMON Not Available Start: 05-11-2023 End: 05-11-2023 ambulatory MD Sylvia Tavares Work Phone: [facility] Work Phone: Start: 05-11-2023 End: 05-11-2023 Patient encounter procedure MD Sylvia Tavares Work Phone: [facility] Work Phone: Start: 05-03-2023 End: 05-03-2023 ambulatory Sylvia Tavares Other [email or web address] Other Start: 05-03-2023 Office outpatient vi sit 15 minutes Sylvia [facility] Start: 05-10-2022 End: 05-10-2022 ambulatory MD Sylvia Tavares Work Phone: [facility] Work Phone: Start: 05-10-2022 End: 05-10-2022 Patient encounter procedure MD Sylvia Tavares Work Phone: [facility] Start: 02-01-2022 Encounter for genera l adult medical examination without abnormal findings DR GERMAINE ALDANA [facility] Start: 01-29-2022 End: 01-30-[address] GERMAINE ALDANA Facility:[facility] Start: 01-29-2022 End: 01-30-2022 Encounter for general adult medical examination without abnormal findings DR GERMAINE ALDANA Facility:[facility] Start: 04-04-2021 End: 04-05-[address] GERMAINE ALDANA Facility:[facility] Procedures Date Procedure Procedure Detail Performing Clinician Start: 07-03-2024 Screening colonoscopy Darinel Tavares MD Work Phone: Start: 05-21-2024 Mammography Abdirahman madrigal MD Work Phone: Start: 05-19-2024 Screening mammograph y of bilateral breasts Sylvia Tavares MD Work Phone: Start: 05-18-2023 Microscopic observat ion [Identifier] in Cervix by Cyto stain Leslye Alexander NP Work Phone: Start: 05-11-2023 End: 05-11-2023 Screening mammography of bilateral breasts MD Sylvia Tavares Work Phone: Plan of Treatment Date Care Activity Detail Author Start: 05-18-2028 Screening for malign ant neoplasm of cervix [facility] Start: 05-18-2026 Screening for malign ant neoplasm of cervix Pap Smear [facility] Start: 05-27-2025 End: 05-27-2025 Patient encounter procedure 05/27/2025 8:30 AM EST Office Visit [facility] [address] [place] [id number] Abdirahman Reynoso MD [address] [place] [address] [facility] Start: 05-21-2025 Screening for malign ant neoplasm of breast Mammogram [facility] Start: 05-20-2025 End: 07-22-2025 DBT Breast - bilateral screening Bilateral screening mammogram with tomosynthesis Imaging Routine Encounter for screening mammogram for malignant neoplasm of breast Expected: 05/20/2025, Expires: 07/22/2025 [facility] Comment on above: Expected: 05/20/2025 , Expires: 07/22/2025 Start: 07-03-2024 [facility] Start: 05-21-2024 End: 05-21-2024 Patient encounter procedure 05/21/2024 2:15 PM EST Office Visit [facility] [address] [place] [id number] Abdirahman Reynoso MD [address] [place] [address] [facility] Start: 05-21-2024 End: 05-21-2024 Professional / ancillary services management 05/21/2024 1:00 PM EST Ancillary Procedure [facility] [address] [place] [phone] [facility] Start: 05-11-2024 Screening for malign ant neoplasm of breast Mammogram [facility] Start: 04-26-2024 Patient referral [facility] Work Phone: Start: 05-10-2022 Screening mammograph y of bilateral breasts MM screening mammo BI w/CAD [facility] Start: 1975 Screening for malign ant neoplasm of colon [facility] Patient Education Colon polyps K now your [facility] Work Phone: Patient referral [facility] Work Phone: SENDOUT TEST MISCELLANEOUS [facility] SENDOUT TEST MISCELLANEOUS [facility] Lab Routine Screening for malignant neoplasm of cervix Encounter for gynecological examination without abnormal finding Ordered: 05/21/2024 [facility] Work Phone: Comment on above: Ordered: 05/21/2024 Immunizations Immunization Date Immunization Notes Care Provider Bart casas 01-29-2022 COVID-19 Vaccine Moderna - Documentation Purposes Only Sylvia Tavares Other [facility] 10-18-2020 COVID-19 Vaccine Moderna - Documentation Purposes Only Sylvia Tavares Other [facility] 09-19-2020 COVID-19 Vaccine Moderna - Documentation Purposes Only Sylvia Tavares Other [facility] 02-17-2020 influenza virus vaccine, split virus (incl. purified surface antigen) Sylvia Tavares Other [email or web address] Other 02-17-2020 influenza virus vaccine, unspecified formulation [facility] 03-26-2018 influenza virus vaccine, split virus (incl. purified surface antigen) Sylvia Tavares Other [email or web address] Other 03-26-2018 influenza virus vaccine, unspecified formulation [facility] 04-15-2017 tetanus and diphther ia toxoids, adsorbed, preservative free, for adult use (5 Lf of tetanus toxoid and 2 Lf of diphtheria toxoid) Sylvia Tavares Other [facility] 10-17-2016 tetanus toxoid, redu norris diphtheria toxoid, and acellular pertussis vaccine, adsorbed Sylvia Tavares Other [facility] 03-12-2016 tetanus and diphther ia toxoids, adsorbed, preservative free, for adult use (5 Lf of tetanus toxoid and 2 Lf of diphtheria toxoid) Sylvia Tavares Other [facility] 04-12-2015 tetanus and diphther ia toxoids, adsorbed, preservative free, for adult use (5 Lf of tetanus toxoid and 2 Lf of diphtheria toxoid) Sylvia Tavares Other [facility] 03-01-2014 tetanus and diphther ia toxoids, adsorbed, preservative free, for adult use (5 Lf of tetanus toxoid and 2 Lf of diphtheria toxoid) Sylvia Tavares Other [facility] 07-07-2013 tetanus and diphther ia toxoids, adsorbed, preservative free, for adult use (5 Lf of tetanus toxoid and 2 Lf of diphtheria toxoid) Sylvia Tavares Other [facility] Payers Date Payer Category Payer Self-pay [id number] 2014 [facility] Plan / Payer (Effective 2014-Present) Name: izaiah Loly E Relation to Subscriber: Self Name: Loly Wayne Payer ID: Not on file Type: Not on file Address: [address] [place] [id number] 2014 Unknown BCBS BCBS xxxxxx [id number] 2014-Present [phone] [address] [place] [address] [id number] 1975 Unknown [id number]. [id number] 1975 Unknown [id number]. 2.593 1975 Unknown [id number] [id number]. 2.1259 1975 Unknown [id number] [id number]. 2.9 1975 Unknown [id number] [id number]. 2.1258 1975 Unknown [id number] [id number]. 2.9 1975 Unknown [id number] [id number]. 2.1258 1975 Unknown [id number] [id number]. 2.1258 1975 Unknown [id number] [id number]. 2.1258 1975 Unknown [id number] [id number]. 2.1259 1959 Unknown [id number] Unknown [id number]. 2.531 Social History Date Type Detail Facility Start: 07-01-2017 Tobacco smoking status WVIS Smoker (finding) [facility] Start: 1975 Sex Assigned At Female F [facility] Start: 09-22-2023 End: 05-21-2024 Sex Assigned At [facility] Start: 05-18-2023 End: 07-03-2024 Tobacco smoking status [facility] Never smoked tobacco [facility] Start: 05-18-2023 Tobacco use and exposure Smokeless tobacco non-user [facility] Start: 03-20-2024 End: 05-21-2024 Alcoholic beverage intake Current drinker of alcohol (finding) [facility] Start: 09-22-2023 End: 05-21-2024 History of Social function [facility] How often to you hav e a drink containing alcohol? Monthly or less [facility] How many standard drinks containing alcohol do you have on a typical day? 1 or 2 [facility] How often do you hav e 6 or more drinks on 1 occasion? Less than monthly [facility] Start: 07-04-2023 Alcohol Comment caffeine intak e : 1-2 cups per day [facility] Start: 05-11-2023 Gender identity Identifies as female gender (finding) [facility] Start: 05-11-2023 Sexual orientation Heterosexual (fin ding) [facility] Start: 04-26-2024 End: 07-03-2024 Sex Female (finding) [facility] NEGATED: Highlighted row [facility] Medical Equipment Procedure Code Equipment Code Equipment Origin al Text Equipment Identifier Dates Start: 02-22-2023 Blood Sugar Diagnostic (Onetouch Verio Test Strips) strip Start: 05-02-2024 Blood Sugar Diagnostic (Onetouch Verio Test Strips) strip Start: 05-01-2024 End: 05-02-2024 Goals Date Patient Goal Desired Activity /State Clinical Notes 05-03-2023 to 07-03-2024 Note Date & Type Note Facility 07-03-2024 Procedure note [facility] 07-03-2024 History and physical note [facility] 06-14-2024 History and physical note Note Date/Time July 03, 2024 7:53am [facility] [address] [place] [address] Gastroenterology H&P Signed Patient: Loly Wayne MR#: [id number] : 1975 Acct:[id number] Age/Sex: 48 / F Adm Date: 5 Loc: Room: Type: [facility] Attending Dr: Kina Ruiz DO Copies to: DO Sylvia Crowley MD~ Date of Service: 07/03/2024 HISTORY & PHYSICAL: Patient's history with special attention to the cardiovascular, pulmonary systems and the current problem was reviewed with the patient immediately prior to the procedure. Present medications and doses reviewed in the EMR. Allergies and pertinent laboratory tests were also reviewedat this time in the EMR. The physical examination, as below, was then performed. Indication, assessment and HPI: 48-year-old female who presents for screening colonoscopy. No prior colonoscopy. No GI complaints today. Family history of GI malignancy? No PHYSICAL EXAMINATION General appearance: cooperative, NAD Skin: No jaundice, no rash or lesions Head: NCAT Eyes: Anicteric Neck: Supple Lungs: Normal respiratory effort, no use of accessory muscles Abdomen: Soft, nondistended Neuro: No focal deficits, Ox3. REVIEW OF SYSTEMS Constitutional: Denies malaise, fevers Cardiovascular: Denies chest pain, palpitations Respiratory: Denies shortness of breath, wheezing Gastrointestinal: As per HPI Genitourinary: Denies dysuria, polyuria Musculoskeletal: Denies joint swelling, joint stiffness Neurological: Denies confusion, numbness, tingling Endocrine: Denies fatigue Written informed consent obtained from the patient. Risks (including but not limited to perforation, infection, bloating, bleeding, need for emergent surgeryand loss of life), benefits and alternatives explained and questions answered. The patient verbalized understanding. Based on history patient is an appropriate candidate for the procedure. Kina Ruiz DO Present medication and doses reviewed in the EMR Documented By: Kina Ruiz DO 07/03/24 0752 Signed By: <Electronically signed by Kina Ruiz DO> 07/03/[address] [facility] Work Phone: [phone] 505-707512-09-2024 History of Present illness Narrative* Abdirahman Reynoso MD - 05/21/2024 2:15 PM EST Images from the original note were not included. Abdirahman Reynoso MD Obstetrics and Gynecology Patient: Loly Wayne : 1975 (48 y.o.) Yearly Wellness Exam Date: 05/21/2024 Reason for Visit - Chief Complaint Patient presents with Gynecologic Exam LMP: absent due to ablation Last Mammogram: 05/19/24 Last Pap: 05/18/23 Complaints: In house US done today for hx of fibroid and ovarian cyst. The patient reports concerns about a recent ultrasound. The patient expresses worry about this finding and seeks reassurance. The patient also mentions having a history of cysts and is relieved to hear that there are no current cysts present. Atypical glandular cells with previous pap 2019 The patient is scheduled for regular ultrasounds every 2 weeks Visit Vitals BP 118/76 Wt 217 lb BMI 40.34 kg/m OB Status Ablation Smoking Status Never BSA 2.07 m History of Present Illness, Associated Treatments and Results - OB History Para Term AB Living 0 0 0 0 0 0 SAB IAB Ectopic Multiple Live Births 0 0 0 0 0 Review of Systems - Constitutional: Negative. HENT: Negative. Eyes: Negative. Respiratory: Negative. Cardiovascular: Negative. Gastrointestinal: Negative. Endocrine: Negative. Genitourinary: Negative. Musculoskeletal: Negative. Skin: Negative. Allergic/Immunologic: Negative. Neurological: Negative. Hematological: Negative. Psychiatric/Behavioral: Negative. Allergies Allergen Reactions Latex Rash Other Reaction(s): Unknown Current Outpatient Medications: alpha tocopherol (Vitamin E) 400 units capsule, 1 capsule 1 (one) time each day at the same time, Disp: , Rfl: ASPIRIN 81 PO, 1 (one) time each day at the same time, Disp: , Rfl: atenolol (Tenormin) 50 MG tablet, 1 (one) time each day at the same time, Disp: , Rfl: atorvastatin (Lipitor) 20 MG tablet, 1 (one) time each day at the same time, Disp: , Rfl: calcium carbonate (Calcium 600) 600 MG tablet, Orally, Disp: , Rfl: cetirizine (ZyrTEC) 10 MG chewable tablet, 1 (one) time each day at the same time, Disp: , Rfl: Cinnamon 500 MG tablet, 1 (one) time each day at the same time, Disp: , Rfl: lisinopril-hydroCHLOROthiazide 10-12.5 MG tablet, 1 (one) time each day at the same time, Disp: , Rfl: metFORMIN (Glucophage) 1000 MG tablet, every 12 (twelve) hours, Disp: , Rfl: OneTouch Verio test strip, , Disp: , Rfl: Ozempic, 0.25 or 0.5 MG/DOSE, 2 MG/3ML solution pen-injector, , Disp: , Rfl: Potassium 99 MG tablet, 1 (one) time each day at the same time, Disp: , Rfl: zinc gluconate 50 MG tablet, 1 (one) time each day at the same time, Disp: , Rfl: Past Medical History: Diagnosis Date Adenomyosis Allergies Atypical glandular cells of undetermined significance (NADIR) on cervical Pap smear 2019 Diabetes mellitus (CMS/HCC) Hx of being hospitalized mini [facility] Hyperlipidemia (CMS/HCC) Hypertension (CMS/HCC) Lipids abnormal (CMS/[facility]) TIA (transient ischemic attack) mini street Past Surgical History: Procedure Laterality Date DILATION AND CURETTAGE OF UTERUS 2018 ENDOMETRIAL ABLATION 2018 [employer] FOOT SURGERY Right 1999 1 screw HYSTEROSCOPY 2018 OTHER SURGICAL HISTORY 2018 thermal ablation OTHER SURGICAL HISTORY 2018 [facility] : abnormal pap NADIR Family History Problem Relation Name Age of Onset Diabetes Mother Diabetes Father Hypertension Father Cancer Father Social History Tobacco Use Smoking Status Never Smokeless Tobacco Never Physical Exam - General appearance, mentation, extraocular movements, facial strength and movement, hearing, upper and lower extremity strength and tone, sensation to gross testing, coordination, and gait are normalor at baseline unless noted below. Physical Exam Constitutional: Appearance: Normal appearance. Genitourinary: Right Labia: No rash or lesions. Left Labia: No lesions or rash. No vaginal discharge or erythema. No vaginal prolapse present. No vaginal atrophy present. Right Adnexa: not tender and no mass present. Left Adnexa: not tender and no mass present. No cervical lesion. Uterus is not tender. Uterus is anteverted. Breasts: Right: Normal. No mass or nipple discharge. Left: Normal. No mass or nipple discharge. HENT: Head: Normocephalic and atraumatic. Cardiovascular: Rate and Rhythm: Normal rate and regular rhythm. Pulmonary: Breath sounds: Normal breath sounds. Abdominal: General: There is no distension. Palpations: Abdomen is soft. There is no mass. Tenderness: There is no abdominal tenderness. Musculoskeletal: General: Normal range of motion. Cervical back: Neck supple. Lymphadenopathy: Cervical: No cervical adenopathy. Neurological: Mental Status: She is alert and oriented to person, place, and time. Skin: General: Skin is warm and dry. Psychiatric: Mood and Affect: Mood normal. FCBD Erythematous vulva cystocele US today Transvaginal scans of the pelvis were obtained. Today's ultrasound was compared to a previous pelvic ultrasound performed in our office on 12/22/23. The uterus is normal in size with contour disruption by fibroids. There are several areas of decreased echogenicity felt to represent fibroids which are essentially unchanged in size from the previous exam. The patient has a history of an endometrial ablation, there is suspected remaining endometrial tissue which measures 3.7 mm. The endometrium is normal in contour. The right ovary is normal appearing in size and echotexture. The left ovary is not well visualized.There is no overt adnexal mass. There is no free fluid visible within the pelvis. Assessment/Plan ICD-10-CM 1. Screening for malignant neoplasm of cervix Z12.4 SENDOUT TEST MISCELLANEOUS [facility] 2. Encounter for screening mammogram for malignant neoplasm of breast Z12.31 Bilateral screening mammogram with tomosynthesis CANCELED: Bilateral screening mammogram with tomosynthesis 3. Encounter for gynecological examination without abnormal finding Z01.419 SENDOUT TEST MISCELLANEOUS [facility] 4. Pelvic mass R19.00 5. Cyst of ovary, unspecified laterality N83.209 6. Fibroids D21.9 Pap and exam performed. Mammogram ordered Results can be found in MyChart in 7 days Return 1 year for annual 1. Patient anxiety and concerns: - Plan: a) Address concerns and provide reassurance during appointments. b) Encourage patient to ask questions and discuss worries in future visits. 2. Ultrasound findings: -Fibroids still present b) Discuss findings with patient during next visit. 3. No 0varian cysts detected: - Patient expressed relief - Plan: a) Continue monitoring patient's gynecological health. b) Schedule regular check-ups as needed. 5. Follow-up appointments: - Plan: a) Schedule follow-up appointments as needed. b) Encourage patient to attend appointments regularly. c) Maintain open communication with healthcare team. Electronically signed by Abdirahman Reynoso MD documented in this encounterRipley County [facility] [id number] Evaluation note* Diagnosis Onset Date Resolution Status Admit Date High cholesterol acute April 26, 2024 1:02pm Hypertension acute April 1:02pm Screening for colon cancer acute April 26, 2024 1:02pm Type 2 diabetes mellitus wit h hyperglycemia acute April 26, 2 024 1:02pm Wellness examination acute [facility] 2023 1:02pm [facility] Work Phone: 1(641) 819-835010-08-2024 History of Present illness Narrative* Leslye Alexander NP - 03/20/2024 5:05 PM EDT Images from the original note were not included. HPI: Historian of HPI: patient Loly Wayne is a 48 y.o. female who presents today to the Urgent Care with the following complaints and denials which have been present for 1 week(s) C/O Denies Symptom Comments [] [x] Lesion [x] [] Rash [] [x] Lump [] [x] Bump [] [x] Depression [] [x] abscess [] [x] cellulitis [x] [] itching [x] [] pain [x] [] burning [] [x] Sensation of insects crawling Additional Comments: pt has taken cortisone OTC medication without relief ROS: A complete system ROS was performed and negative aside from the pertinent positives noted in the HPI and PE. Visit Vitals BP 118/70 Pulse 76 Temp 96.8 F Wt 219 lb SpO2 98% BMI 40.71 kg/m OB Status Ablation Smoking Status Never BSA 2.08 m Physical Exam Vitals reviewed. Constitutional: General: She is not in acute distress. Appearance: Normal appearance. HENT: Head: Normocephalic. Nose: Nose normal. Mouth/Throat: Mouth: Mucous membranes are moist. Pharynx: Oropharynx is clear. Eyes: Extraocular Movements: Extraocular movements intact. Conjunctiva/sclera: Conjunctivae normal. Pupils: Pupils are equal, round, and reactive to light. Cardiovascular: Rate and Rhythm: Normal rate and regular rhythm. Pulses: Normal pulses. Heart sounds: Normal heart sounds. Pulmonary: Effort: Pulmonary effort is normal. No respiratory distress. Breath sounds: No wheezing, rhonchi or rales. Musculoskeletal: General: Normal range of motion. Cervical back: Normal range of motion and neck supple. Skin: General: Skin is warm and dry. Findings: Erythema and rash present. Rash is vesicular. Neurological: General: No focal deficit present. Mental Status: She is alert and oriented to person, place, and time. Psychiatric: Mood and Affect: Mood normal. 1. Herpes zoster without complication Antiviral's shorten the duration of viral shedding, stop the formation of new lesions, and reduce pain severity. New meds as directed. Advised that patients can transmit the virus through fluids fromthe lesions to people without a history of chicken pox infection; therefore, direct body contact should be avoided. Covering lesions that are not usually covered by clothing may also decrease transmission. Avoid small children and women while rash is present - valACYclovir (Valtrex) 1 g tablet; Take 1 tablet (1,000 mg) by mouth in the morning and 1 tablet (1,000 mg) in the evening and 1 tablet (1,000 mg) before bedtime. Do all this for 7 days. Dispense: 21 tablet; Refill: 0 documented in this encounterRipley County Memorial [id number] Evaluation note* Encounter Date Diagnosis Assessment Notes Treatment Notes Treatment Clinical Notes Jun, Type 2 diabetes mellitus with hyperglycemia, without long-term current use of insulin (ICD-10 - E11.65) [email or web address] Other [id number] Evaluation note* Encounter Date Diagnosis Assessment Notes Treatment Notes Treatment Clinical Notes Apr, Pain, joint, knee, right (ICD-10 - M25.561) Continue advil. PT Order printed and given to Loly. Will schedule next week. Apr, Morbid (severe) obesity due to excess calories (ICD-10 - E66.01) Has continued to lose weight on ozempic and personal efforts. This could contribute to knee issues. Apr, Body mass index [BMI] 40.0-44.9, adult (ICD-10 - Z68.41) [email or web address] Other Evaluation noteNo assessment information available [facility] Work Phone: Evaluation note* Diagnosis Herpes zoster without complication- Primary documented in this encounter [facility]* Diagnosis Onset Date Resolution Status Admit Date High cholesterol acute April 26, 2024 1:02pm Hypertension acute April, 2023 1:02pm Type 2 diabetes mellitus wit h hyperglycemia acute April 26, 2 024 1:02pm Wellness examination acute [facility] 2023 1:02pm [facility] Work Phone: Evaluation note* Diagnosis Screening for malignant neoplasm of cervix- Primary Screening for malignant neoplasm of the cervix Encounter for screening mammogram for malignant neoplasm of breast Encounter for gynecological examination without abnormal finding Pelvic mass Abdominal or pelvic swelling, mass or lump, unspecified site Cyst of ovary, unspecified laterality Fibroids Leiomyoma of uterus, unspecified documented in this encounter [facility] HealthcareHistory general Narrative - Reported* Type Description Date Medical History hypertension Medical History high cholesterol Medical History mini strokes Surgical History fracture repair Surgical History adenoidectomy Hospitalization History see above [email or web address] Other Hospital Discharge instructionsAmbulatory Orders* Referral to Gastroenterology Time Frame: 04/26/24, Location: None Selected [facility] Work Phone: Summary Purpose Family History No Family History Records Found Relationship Condition Age at Onset Recorded Date/T adonay father Malignant neoplasm Unknown Diabetes mellitus Unknown Hypertension Unknown mother Hypertension Unknown Relationship Condition Age at Onset Recorded Date/T adonay father Malignant neoplasm Unknown Diabetes mellitus Unknown Hypertension Unknown Malignant neoplasm of liver Unknown mother Hypertension Unknown Advance Directives No Advanced Directives Records Found Advance Directive Response Recorded Date/ Time Advance Directives No March 24, 2017 11:10am Chief Complaint and Reason for Visit Chief Complaint Screening Chief Complaint Z12.31 Chief Complaint Admit Date Wellness April 26, 2024 1:02pm Reason for Visit Admit Date High cholesterol April 26, 2024 1:02pm Hypertension April 26, 2024 1:02pm Type 2 diabetes mellitus with hyperglyce randal April 26, 2024 1:02pm Wellness examination April 26, 2024 1:02pm Chief Complaint Admit Date Wellness April 26, 2024 1:02pm Screening May 19, 2024 9 :16am Screening July 03, 2024 7 :03am Screening July 03, 2024 7 :53am Reason for Visit Admit Date High cholesterol April 26, 2024 1:02pm Hypertension April 26, 2024 1:02pm Screening for colon cancer April 1:02pm Type 2 diabetes mellitus with hyperglyce randal April 26, 2024 1:02pm Wellness examination April 26, 2024 1:02pm Additional Source Comments INFORMATION SOURCE (unrecogn ized section and content) DATE CREATED AUTHOR 02/04/2022 [facility] DATE CREATED AUTHOR AUTHOR'S ORGANIZ ATION 05/24/2024 [facility] EPIC DATE CREATED AUTHOR AUTHOR'S ORGANIZ ATION 07/11/2024 [facility] Care Teams (unrecognized sec tion and content) Team Status: Active Member Role Status Dates Sylvia Tavares MD Primary Care Provider Active Team Status: Active Member Role Status Dates Sylvia Tavares MD Primary Care Provide r, Attending Provider Active Start: April 26, 2024 Team Status: Inactive Member Role Status Dates Sylvia Tavares MD Primary Care Provide r, Attending Provider Active Start: April 26, 2024 End: April 26, 2024 Team Status: Inactive Member Role Status Dates Sylvia Tavares MD Primary Care Provider Active Abdirahman Reynoso MD Attending Provider Active Gas Worker Relationship Specialty Start Date End Date Sylvia Tavares MD [address] [place] [id number] PCP - [facility] 05/18/23 Gas Worker Relationship Specialty Start Date End Date Sylvia Tavares MD [address] [facility] [place] [id number] PCP - [facility] 05/18/23 Team Status: Inactive Member Role Status Dates Sylvia Tavares MD Primary Care Provider Active Start: May 19, 2024 End: May 19, 2024 Referral Self Attending Provider Active Start: 2023 End: May 19, 2024 Abdirahman Reynoso MD Referring Provider Active St art: May 19, 2024 End: May 19, 2024 Team Status: Inactive Member Role Status Dates Sylvia Tavares MD Primary Care Provider Active Start: July 03, 2024 End: July 03, 2024 Kina Ruiz DO Attending Provider Active St art: July 03, 2024 End: July 03, 2024 Team Status: Active Member Role Status Dates Sylvia Tavares MD Primary Care Provider Active Start: July 03, 2024 Kina Ruiz DO Attending Provider, Other Provider Active Start: July 03, 2024 Goals (unrecognized section and content) Goals may be documented in a n alternate sectionNo InformationGoals may be documented in an alternate sectionNo InformationGoals may be documented in an alternate section REASON FOR VISIT (unrecogniz ed section and content) Reason Comments Gynecologic Exam FOR RECORDS PERTAINING TO PATIENTS WHO ARE OR HAVE BEEN ENROLLED IN A CHEMICAL DEPENDENCY/SUBSTANCEABUSE PROGRAM, SOME INFORMATION MAY BE OMITTED. This clinical summary was aggregated from multiple sources. Caution should be exercised in using it in the provision of clinical care. This summary normalizes information from multiple sources, and as a consequence, information in this document may materially change the coding, format and clinical context of patient data. In addition, data may be omitted in some cases. CLINICAL DECISIONS SHOULD BE BASED ON THE PRIMARY CLINICAL RECORDS. [facility] provides no warranty or guarantee of the accuracy or completeness of information in this document.
[2024-11-24 07:46] LABS: Basophils Absolute Auto 0.1 10^3/uL (0.0-0.1); Basophils Percent Auto 0.7 % (0.2-2.0); Eosinophils Absolute Auto 0.4 10^3/uL (0.0-0.7); Eosinophils Percent Auto 4.3 % (0.9-7.0); Hematocrit 43.5 % (36.0-48.0); Immature Granulocytes Abs Auto 0.04 10^3/uL (0.00-0.03); Immature Granulocytes Pct Auto 0.4 % (0.0-0.5); Lymphocytes Absolute Auto 2.3 10^3/uL (1.2-3.8); Lymphocytes Percent Auto 25.1 % (20.5-60.0); Mean Corpuscular HGB Conc 34.5 g/dL (29.9-35.2); Mean Corpuscular Hemoglobin 29.6 pg (26.7-34.0); Mean Corpuscular Volume 85.8 fL (81.0-99.0); Mean Platelet Volume 9.5 fL (9.5-13.5); Monocytes Absolute Auto 0.6 10^3/uL (0.3-0.8); Monocytes Percent Auto 6.8 % (1.7-12.0); Neutrophils Absolute Auto 5.8 10^3/uL (1.4-6.5); Neutrophils Percent Auto 62.7 % (43.0-75.0); Platelet Count 333 10^3/uL (150-450); Red Blood Count 5.07 10^6/uL (4.20-5.40); Red Cell Distribution Width 12.7 % (11.0-15.0); White Blood Count 9.2 10^3/uL (4.0-11.0)
[2024-11-24 09:10] LABS: BUN Creatinine Ratio 18.1; Carbon Dioxide 27.1 mmol/L (21.0-32.0); Chloride 98 mmol/L (98-107); Estimated GFR (African America >60 (>=60 mL/min/1.73m^2); Estimated GFR (Non-African Ame >60 (>=60 mL/min/1.73m^2); Potassium 4.1 mmol/L (3.5-5.1); Sodium 135 mmol/L (136-145)
[2024-11-24 09:33] LABS: Alanine Aminotransferase 50 U/L (14-59); Albumin Globulin Ratio 1.2; Alkaline Phosphatase 81 U/L (46-116); Aspartate Amino Transferase 24 U/L (15-37); Bilirubin Total 0.5 mg/dL (0.2-1.0); Calcium 9.1 mg/dL (8.5-10.1); Cholesterol 175 mg/dL (<=200); Globulin 3.4 g/dL; Glucose 186 mg/dL (74-106); HDL Cholesterol 44 mg/dL (40-60); Total Protein 7.4 g/dL (6.4-8.2); Triglycerides 267 mg/dL (<=150); VLDL CHOLESTEROL 53.4 mg/dL
[2024-11-24 09:33] LABS: Microalbumin Urine Random <1.3 mg/dL (<=30.0)
[2024-11-24 09:36] LABS: Estimated Average Glucose 157 mg/dL; Glycohemoglobin A1C 7.1 % (4.5-6.2)
== END 2024-11-24 07:13 | disposition home or self-care (01) ==
LOC: LAB 07:12
PROVIDERS: PCP Family Medicine; Visit Provider Family Medicine
DX: Z00.00 Encounter for general adult medical examination without abnormal findings (principal); E78.5 Hyperlipidemia, unspecified; E11.65 Type 2 diabetes mellitus with hyperglycemia
CPT/HCPCS: 36415; 80053; 80061; 82043; 83036; 85025